=== PATIENT | male | born 1945 | race Hispanic/Latino ===

== ENCOUNTER 2024-09-11 13:02 | Observation (INO) | payer MEDICARE ==
[2024-09-11] VITALS (7 sets, daily range): BP systolic 102–136; BP diastolic 50–89; PULSE 52–65; RESP 18–19; TEMP 97.5–98.7; O2SAT 98–100
[~2024-09-11] VITALS: Ht 170.2 cm; Wt 84.8 kg
[2024-09-11 14:23] LABS: BASOPHILS % 0.7 % (0.0-1.0); EOSINOPHILS # (AUTO) 0.3 (0.0-0.4); EOSINOPHILS % 5.7 % (0.0-6.0); HEMATOCRIT 40.4 % (38.2-49.6); HEMOGLOBIN 13.4 g/dL (14.0-18.0); LYMPHOCYTES # (AUTO) 0.8 (1.0-3.2); LYMPHOCYTES % 13.8 % (18.0-39.1); MEAN CORPUSCULAR HEMOGLOBIN 29.5 pg (28-32); MEAN CORPUSCULAR HGB CONC 33.2 g/dL (31-35); MEAN CORPUSCULAR VOLUME 88.8 fL (81-99); MONOCYTES # (AUTO) 0.6 (0.2-0.8); MONOCYTES % 9.6 % (4.4-11.3); NEUTROPHILS # (AUTO) 4.2 (2.1-6.9); NEUTROPHILS % 69.9 % (38.7-80.0); PLATELET COUNT 130 x10e3/uL (140-360); RED BLOOD COUNT 4.55 x10e6/uL (4.3-5.7); RED CELL DISTRIBUTION WIDTH 13.6 % (11.7-14.4); WHITE BLOOD COUNT 5.94 x10e3/uL (4.8-10.8)
[2024-09-11 14:42] LABS: INR 0.94; PROTHROMBIN TIME 13.1 seconds (11.9-14.5)
[2024-09-11 14:43] LABS: PARTIAL THROMBOPLASTIN TIME 28.8 seconds (23.8-35.5)
[2024-09-11 14:55] LABS: ALBUMIN 3.8 g/dL (3.5-5.0); ALBUMIN/GLOBULIN RATIO 1.3 (0.8-2.0); ANION GAP 13.4 mmol/L (8-16); BILIRUBIN,TOTAL 0.7 mg/dL (0.2-1.2); CALCIUM 9.4 mg/dL (8.4-10.2); CREATININE, SERUM 0.66 mg/dL (0.72-1.25); POTASSIUM 4.4 mmol/L (3.5-5.1); TOTAL PROTEIN 6.8 g/dL (6.5-8.1)
[2024-09-11 15:07] LABS: TROPONIN I 0.001 ng/mL (0-0.300)
[2024-09-11] MEDS ORDERED: Morphine 2mg Syringe 2 MG/ML SYR IV PRN (16:30)
[2024-09-11] MEDS ORDERED: ONDANSETRON HCL INJ 2MG/ML 2ML 2 MG/ML VIAL IV PRN (16:30)
[2024-09-11] MEDS ORDERED: POTASSIUM CHLORIDE 20 MEQ TAB CR PO PRN (16:45)
[2024-09-11] MEDS ORDERED: LIDOCAINE 4% PATCH TP PRN (16:45)
[2024-09-11] MEDS ORDERED: HYDRALAZINE HCL 20 MG/ML VIAL IV PRN (16:45)
[2024-09-11] MEDS ORDERED: DEXTROSE 50% SYRINGE 50 ML IV PRN (16:45)
[2024-09-11] MEDS ORDERED: DIPHENHYDRAMINE HCL 25 MG CAP PO PRN (16:45)
[2024-09-11] MEDS ORDERED: ALBUTEROL/IPRATROPIUM 3 ML NEB NEB PRN (16:45)
[2024-09-11] MEDS ORDERED: SIMETHICONE 80 MG CHEW PO PRN (16:45)
[2024-09-11] MEDS ORDERED: DOCUSATE SODIUM 100 MG CAP PO PRN (16:45)
[2024-09-11] MEDS: ENOXAPARIN SOD INJ 40 MG/0.4 ML SYR SC SCH (17:40)
[2024-09-11] MEDS ORDERED: ASPIRIN81 MG PO (19:37)
[2024-09-11] MEDS ORDERED: ROSUVASTATIN CA20 MG PO (19:37)
[2024-09-11] MEDS ORDERED: OMEPRAZOLE40 MG PO (19:37)
[2024-09-11] MEDS ORDERED: metoprolol ER PO (19:37)
[2024-09-11] MEDS ORDERED: PLAVIX75 MG PO (19:37)
[2024-09-11] MEDS: ATORVASTATIN 40 MG TAB PO SCH (20:47)
[2024-09-11] MEDS: ACETAMINOPHEN 325 MG TAB PO PRN (20:47)
[2024-09-11] MEDS ORDERED: MELATONIN 5 MG TABLET PO PRN (21:00)
[2024-09-12 00:51] LABS: TROPONIN I 0.003 ng/mL (0-0.300)
[2024-09-12 03:56] VITALS: BP 100/52; PULSE 62; RESP 18; TEMP 98.3; O2SAT 98
[2024-09-12] MEDS: BENZONATATE 100 MG CAP PO PRN (06:23)
[2024-09-12 08:00] VITALS: BP 118/73; PULSE 70; RESP 19; TEMP 98.7; O2SAT 98
[2024-09-12 08:10] LABS: BASOPHILS % 0.9 % (0.0-1.0); EOSINOPHILS # (AUTO) 0.5 (0.0-0.4); EOSINOPHILS % 9.8 % (0.0-6.0); HEMATOCRIT 38.4 % (38.2-49.6); LYMPHOCYTES # (AUTO) 0.9 (1.0-3.2); LYMPHOCYTES % 20.4 % (18.0-39.1); MEAN CORPUSCULAR HEMOGLOBIN 29.3 pg (28-32); MEAN CORPUSCULAR HGB CONC 33.9 g/dL (31-35); MEAN CORPUSCULAR VOLUME 86.7 fL (81-99); MONOCYTES # (AUTO) 0.6 (0.2-0.8); MONOCYTES % 12.3 % (4.4-11.3); NEUTROPHILS # (AUTO) 2.6 (2.1-6.9); NEUTROPHILS % 56.4 % (38.7-80.0); PLATELET COUNT 105 x10e3/uL (140-360); RED BLOOD COUNT 4.43 x10e6/uL (4.3-5.7); RED CELL DISTRIBUTION WIDTH 13.6 % (11.7-14.4); WHITE BLOOD COUNT 4.57 x10e3/uL (4.8-10.8)
[2024-09-12] MEDS: ASPIRIN 81 MG ENTERIC COATED PO SCH (08:55)
[2024-09-12] MEDS: PANTOPRAZOLE SOD 40 MG TABEC PO SCH (08:55)
[2024-09-12] MEDS: CLOPIDOGREL BISULFATE 75 MG TAB PO SCH (08:55)
[2024-09-12 09:00] VITALS: BP 118/73; PULSE 70; RESP 19; TEMP 98.7; O2SAT 98
[2024-09-12 09:14] LABS: ALBUMIN 3.6 g/dL (3.5-5.0); ALBUMIN/GLOBULIN RATIO 1.2 (0.8-2.0); BILIRUBIN,TOTAL 0.8 mg/dL (0.2-1.2); CREATININE, SERUM 0.67 mg/dL (0.72-1.25); TOTAL PROTEIN 6.5 g/dL (6.5-8.1)
[2024-09-12 09:16] LABS: MAGNESIUM 1.9 MG/DL (1.3-2.1); PHOSPHORUS 3.5 MG/DL (2.3-4.7)
[2024-09-12 09:23] LABS: TROPONIN I 0.006 ng/mL (0-0.300)
[2024-09-12 09:38] LABS: THYROID STIMULATING HORMONE 0.501 uIU/mL (0.350-4.940)
[2024-09-12 12:00] VITALS: BP 146/82; PULSE 64; RESP 18; TEMP 98; O2SAT 97
[2024-09-12 12:55] VITALS: PULSE 64; RESP 18; O2SAT 98
[2024-09-12 15:56] VITALS: PULSE 68; RESP 18; O2SAT 97
== END 2024-09-12 16:00 | disposition home or self-care (01) ==
LOC: ER 13:35 → ERHOLD 16:30 → MED/SURG2 18:02
PROVIDERS: ADMIT Internal Medicine; ATTEND Internal Medicine
DX: R07.89 Other chest pain (principal); I25.10 Atherosclerotic heart disease of native coronary artery without angina pectoris; Z95.5 Presence of coronary angioplasty implant and graft; E78.00 Pure hypercholesterolemia, unspecified; I10 Essential (primary) hypertension; J06.9 Acute upper respiratory infection, unspecified; J30.2 Other seasonal allergic rhinitis; Z79.02 Long term (current) use of antithrombotics/antiplatelets; Z79.82 Long term (current) use of aspirin; Z79.899 Other long term (current) drug therapy; Z82.49 Family history of ischemic heart disease and other diseases of the circulatory system
CPT/HCPCS: 36415 ×2; 71045; 80053 ×2; 80061; 82550 ×2; 83036; 83735 ×2; 83880; 84100; 84443; 84484 ×2; 85025 ×2; 85610; 85730; 93005; 94799; 99284; G0378 ×2; J1650; S0164; J2470